=== PATIENT | female | born 1965 | race Caucasian/White ===

== ENCOUNTER 2017-12-04 12:57 | Emergency (ER) | payer OTHER ==
[2017-12-04 13:31] VITALS: BP 160/87
== END 2017-12-04 14:20 | disposition left against medical advice (07) ==
LOC: ED 12:57
DX: S06.0X9A Concussion with loss of consciousness of unspecified duration, initial encounter (principal); X58.XXXA Exposure to other specified factors, initial encounter; Y92.9 Unspecified place or not applicable; Z53.21 Procedure and treatment not carried out due to patient leaving prior to being seen by health care provider
CPT/HCPCS: 99281

== ENCOUNTER 2017-12-04 14:36 | Emergency (ER) | payer OTHER ==
--- NOTE | 2017-12-04 16:08 | RAD ---
Indication: Upper neck pain. CT of the brain was performed without IV contrast. Ventricular structures are midline. No midline shift is noted. The extra-axial spaces are unremarkable. There is no evidence of mass or hemorrhage. No other high or low density lesions are identified. Mastoid air cells and paranasal sinuses are unremarkable. IMPRESSION: No evidence of intracranial mass or hemorrhage is noted.
--- NOTE | 2017-12-04 16:12 | RAD ---
Indication: Upper neck pain. CT of the cervical spine was obtained in the axial plane. Sagittal and coronal reconstructed images were obtained. The skull base demonstrates no fracture. The C1 ring is intact. Mild degenerative changes of the atlantoaxial joint is noted. At C2-C3, C3-C4, C4-C5, C5-C6 and C6-C7 no fracture is identified. No focal protrusion is noted. No central or foraminal stenosis is identified. The lung apices are otherwise unremarkable. Thyroid lobes are unremarkable. IMPRESSION: No fracture of the cervical spine is noted.
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
[2017-12-04 17:21] VITALS: BP 148/80
== END 2017-12-04 17:15 | disposition home or self-care (01) ==
LOC: UCEAST 14:36
DX: S06.0X9A Concussion with loss of consciousness of unspecified duration, initial encounter (principal); S16.1XXA Strain of muscle, fascia and tendon at neck level, initial encounter; X58.XXXA Exposure to other specified factors, initial encounter; Y93.19 Activity, other involving water and watercraft; Y92.838 Other recreation area as the place of occurrence of the external cause
CPT/HCPCS: 70450; 72125; 99211; G0463